=== PATIENT | female | born 1955 | race American Indian/Alaskan Native ===

== ENCOUNTER 2017-07-19 10:10 | Outpatient (CLI) | payer OTHER ==
--- NOTE | 2017-07-19 11:22 | XRay Report ---
LEFT ELBOW, 2 views: History: left elbow pain. The bony architecture is intact without evidence of fracture or dislocation. No significant soft tissue abnormality is seen. IMPRESSION: Unremarkable left elbow.
--- NOTE | 2017-07-19 11:22 | XRay Report ---
LEFT KNEE, 3 views: History: Left knee pain The bony architecture is intact without evidence of fracture or dislocation. No significant soft tissue abnormality is seen. IMPRESSION: Unremarkable left knee.
--- NOTE | 2017-07-19 12:14 | XRay Report ---
LEFT SHOULDER: History: Left shoulder pain. Routine views demonstrate normal bony and soft tissue structures with normal joint alignment of the shoulder. IMPRESSION: Unremarkable left shoulder.
== END 2017-07-19 10:11 | disposition home or self-care (01) ==
LOC: XRAY 10:10
PROVIDERS: ATTEND Internal Medicine
DX: M25.512 Pain in left shoulder (principal); M25.522 Pain in left elbow; M25.562 Pain in left knee; G40.909 Epilepsy, unspecified, not intractable, without status epilepticus; M81.0 Age-related osteoporosis without current pathological fracture; F41.9 Anxiety disorder, unspecified; J45.909 Unspecified asthma, uncomplicated; J40 Bronchitis, not specified as acute or chronic; M06.9 Rheumatoid arthritis, unspecified; L93.0 Discoid lupus erythematosus; R56.9 Unspecified convulsions; F32.9 Major depressive disorder, single episode, unspecified